=== PATIENT | female | born 2005 | race Caucasian/White ===

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

== ENCOUNTER 2024-12-20 14:02 | Outpatient (CLI) | payer MEDICARE, SELFPAY ==
--- NOTE | 2024-12-20 14:00 | US_ITS ---
WS: [id number] US pelvic complete* [id number] HISTORY: IRREGULAR MENSES COMPARISON: None available. Patient declined transvaginal imaging. Uterus: 7.1 cm x 3.7 cm x 3.0 cm. Normal size anteverted uterus. No fibroid or mass. Endometrium: 0.4 cm. Normal as visualized by trans abdominal imaging only. Right ovary: 3.5 cm x 2.6 cm x 1.9 cm. Normal size and vascularity, no cystic or solid masses. Several small follicles associated with the RIGHT ovary. Normal vascularity. Left ovary: 2.3 cm x 2.6 cm x 2.3 cm. Normal size and vascularity, no cystic or solid masses. No free fluid in the cul-de-sac. US/US pelvic complete* [id number] IMPRESSION: 1. Normal transabdominal pelvic ultrasound.
== END 2024-12-20 14:03 | disposition home or self-care (01) ==
LOC: RAD 14:08
PROVIDERS: PCP Nurse Practitioner; Visit Provider Nurse Practitioner Family
DX: N92.6 Irregular menstruation, unspecified (principal)
CPT/HCPCS: 76856